=== PATIENT | male | born 2000 | race Two or more races ===

== ENCOUNTER → 2024-06-29 | Outpatient (CLI) | payer BC, SELFPAY ==
--- NOTE | 2024-06-29 15:05 | XR_ITS ---
Examination: Abdomen AP single view Technique: AP portable supine abdomen, single view Exam date and time: June 29, 2024 at 1513 hours INDICATIONS: Left upper quadrant abdominal pain beginning 8 days ago FINDINGS: Moderate stool throughout the colon No obstruction No free air No renal or ureteral calculi Intact osseous structures IMPRESSION: Moderate stool throughout the colon
[2024-06-29 15:40] LABS: Collection Type, Urine Clean Catch
[2024-06-29 16:27] LABS: Basophils % (Auto) 1 % (0-2.5); Eosinophils # (Auto) 0.2 Thou/mm3 (0.0-0.5); Eosinophils % (Auto) 3 % (0-10); Hematocrit 40.7 % (41.0-53.0); Hemoglobin 14.2 g/dL (13.5-16.0); Immature Granulocytes % (Auto) 1 % (0-0); Immature Granulocytes Auto 0.04 Thou/mm3 (0.00-0.00); Lymphocytes # (Auto) 2.2 Thou/mm3 (1.0-4.8); Lymphocytes % (Auto) 44 % (10-50); Mean Corpuscular HGB Conc 34.9 g/dl (31.0-37.0); Mean Corpuscular Volume 89 fL (80-100); Monocytes # (Auto) 0.3 Thou/mm3 (0.0-0.8); Monocytes % (Auto) 6 % (0-12); Neutrophils # (Auto) 2.3 Thou/mm3 (1.8-7.7); Neutrophils % (Auto) 46 % (37-80); Nucleated Red Blood Cell % 0 /100 WBC (0); Platelet Count 309 Thou/mm3 (140-440); RDW Standard Deviation 39.8 fL (35.1-43.9); Red Blood Count 4.58 Miln/mm3 (4.50-5.90); White Blood Count 5.1 Thou/mm3 (3.8-10.6)
[2024-06-29 16:31] LABS: Bacteria,Urine Rare; Bilirubin,Urine Negative (Negative); Blood,Urine Negative (Negative); Clarity,Urine Clear (Clear/Hazy); Color,Urine Lt-Yellow (Lt Yel-Yel); Glucose, Urine Negative (Negative); Ketones,Urine Negative (Negative); Leukocyte Esterase,Urine Negative (Negative); Nitrite,Urine Negative (Negative); Protein,Urine Negative (Neg - Trace); RBC,Urine 2 /hpf (0-3); Specific Gravity,Urine 1.017 (1.001-1.035); Squamous Epithelial Cell,Urine < 1 /hpf (0-5); Urobilinogen,Urine Negative mg/dL (0.0-1.0); WBC,Urine 1 /hpf (0-5)
[2024-06-29 16:52] LABS: Alanine Aminotransferase 67 U/L (10-49); Albumin, Serum 5.1 gm/dL (3.5-5.0); Albumin/Globulin Ratio 1.8 (1.2-2.2); Alkaline Phosphatase 85 U/L (46-116); Amylase 83 U/L (30-118); Anion Gap 10 (7-16); Aspartate Amino Transferase 31 U/L (0-34); BUN/Creatinine Ratio 11 Ratio (12-20); Bilirubin,Total 0.4 mg/dL (0.3-1.2); Blood Urea Nitrogen 12 mg/dL (9-23); Calcium 10.2 mg/dL (8.3-10.6); Calcium (Corrected) 10.2 mg/dL (8.5-10.1); Carbon Dioxide 27.3 mMol/L (20.0-31.0); Chloride 103 mMol/L (98-107); Creatinine (Component) 1.1 mg/dL (0.6-1.3); Globulin 2.8 gm/dL (2.3-3.5); Glucose 81 mg/dL (74-106); Lipase 28 U/L (12-53); Osmolality,Calculated 278 (275-295); Potassium 3.9 mMol/L (3.4-5.1); Sodium 140 mMol/L (136-145); Total Protein 7.9 gm/dL (5.7-8.2); eGFR > 60 See Note
== END | disposition home or self-care (01) ==
LOC: CDIM 14:37 → COPL 06-30 06:34
PROVIDERS: PCP Family Medicine; Referring Provider Specialist; Visit Provider Radiology Diagnostic Radiology
DX: K59.00 Constipation, unspecified (principal); R14.0 Abdominal distension (gaseous); R10.32 Left lower quadrant pain; K30 Functional dyspepsia
CPT/HCPCS: 36415; 74018; 80053; 81001; 82150; 83690; 85025

== ENCOUNTER 2024-07-20 09:45 | Outpatient (RCR) | payer BC, SELFPAY ==
--- NOTE | 2024-07-20 10:00 | XR_ITS ---
Examination: BLANKA, hepatobiliary radioisotope scan Gallbladder ejection fraction study. Date and time of exam: July 20, 2019 5:10 AM INDICATIONS: Heartburn epigastric pain shortness burning pain in the abdomen one year Technique: 5.9 mCi of 99M Hepatolite administered. Serial imaging then obtained from immediate through 60 minutes. 1.8 mcg selective catheter Kinevac administered for gallbladder ejection fraction study. Findings: Radioisotope activity within the liver is reasonably homogenous. Gallbladder, common bile duct small bowel activity noted Impression: Gallbladder activity Abnormal gallbladder ejection fraction, 9%, normal greater than 35%
== END 2024-07-25 23:59 | disposition home or self-care (01) ==
LOC: SNUC 09:45
PROVIDERS: PCP Family Medicine; Referring Provider Specialist; Visit Provider Specialist
DX: R93.2 Abnormal findings on diagnostic imaging of liver and biliary tract (principal)
CPT/HCPCS: 78227; A9537; J2805

== ENCOUNTER 2024-10-04 10:20 | Day surgery (SDC) | payer BC, SELFPAY ==
[2024-10-03 13:51] VITALS: BMI 30.7
[2024-10-04] VITALS (9 sets, daily range): BP systolic 137–163; BP diastolic 83–103; PULSE 85–134; RESP 16–23; TEMP 36.6–36.9; O2SAT 85–100; BMI 30.3
[2024-10-04] MEDS: SODIUM CHLORIDE 0.9% 500 ML 500 ML 20 ML IV (12:10)
[2024-10-04] MEDS: DiphenhydrAMINE INJ 50 MG/ML VIAL 25 MG IV (12:16)
[2024-10-04] MEDS: fentaNYL CIT INJ 50 mCg/ML AMP 2ML (ASD USE ONLY) IV (12:18)
[2024-10-04] MEDS: MIDAZOLAM INJ 1 MG/ML VIAL 2 ML (ASD USE ONLY) 2 MG IV (12:22)
[2024-10-04] MEDS: MEPERIDINE INJ 25 MG/ML VIAL (ASD USE ONLY) 50 MG IV (12:22)
[2024-10-04] MEDS: LIDOCAINE JELLY 2% (Urojet) 10 ML TUBE TOP (12:27)
--- NOTE | 2024-10-04 13:28 | SUR.PHASEII ---
1232: Pt received for recovery. Report from Courtney VELAZQUEZ. Pt sleepy. Easily aroused. Resp even, unlabored. VS stable. No c/o pain, discomfort. 1300: Pt more awake, alert. VS stable. Denies pain. Sitting up tolerating po fluids with no difficulty swallowing and no n/v. 1313: Pt fully awake, oriented x3. Pt assisted to restroom. Ambulation steady. Pt and stated understanding of discharge instructions. Pt discharged from [facility] in stable condition.
== END 2024-10-04 13:13 | disposition home or self-care (01) ==
PROVIDERS: PCP Physician Assistant Medical; Referring Provider Specialist; Visit Provider Specialist
PROC: 0DBE8ZX Excision of Large Intestine, Via Natural or Artificial Opening Endoscopic, Diagnostic (ICD-10-PCS; CPT 45380; principal; 2024-10-04 11:15)
DX: K64.9 Unspecified hemorrhoids (principal)
CPT/HCPCS: 45378; J1200; J2175; J2250; J3010; J7040